=== PATIENT | male | born 1955 | race African-American/Black ===

== ENCOUNTER 2020-02-27 13:03 | Inpatient (IN) ==
[2020-02-27 15:08] LABS: Basophils % 1.2 % (0.0-0.8); Eosinophils % 1.2 % (0.00-10.9); Hematocrit 40.7 VOL% (42.0-52.0); Hemoglobin 13.4 GM/DL (14.0-18.0); Immature Granulocytes % 0.6 %; Immature Granulocytes Absolute 0.02 #; Lymphocytes # 0.8 10*3/uL (1.4-4.0); Lymphocytes % 25.6 % (21.2-54.2); Mean Corpuscular HGB Conc 32.9 GM/DL (32-36); Mean Corpuscular Volume 91.3 FL (87-102); Mean Platelet Volume 10.5 FL (9.6-12.0); Monocytes % 15.1 % (1.7-12.7); Neutrophils % 56.3 % (38.7-73.9); Platelet Count 124 T/CUMM (130-400); Red Blood Count 4.46 MC/CUMM (3.8-5.5); White Blood Count 3.2 T/CUMM (4-12)
[2020-02-27 15:16] LABS: PT Patient Result 10.9 SECS (9.8-11.9); Partial Thromboplastin Time 40.3 SECS (23.9-33.8)
[2020-02-27 15:36] LABS: Troponin I 0.077 NG/ML (0.00-0.045)
[2020-02-27 15:37] LABS: Eosinophils 1 % (0-10); Lymphocytes 26 % (20-55); Segmented Neutrophils 64 % (50-85); Total Cells Counted 100
[2020-02-27 15:38] LABS: Anisocytosis Slight; Burr Cells Slight; Elliptocytes Few; Osmolality,Calculated 283.4 MOS/KG (273-304); Platelet Estimate Adequate; Schistocytes Slight
[2020-02-27 16:05] LABS: Ferritin 524.9 ng/ml (26-388)
[2020-02-27] MEDS ORDERED: hydrALAZINE 20 MG/1 ML VIAL IV STA (17:08)
[2020-02-27] MEDS ORDERED: FUROSEMIDE 20 MG/2 ML VIAL IV STA (17:08)
[2020-02-27] MEDS ORDERED: ACETAMINOPHEN 325 MG TABLET PO PRN (17:34)
[2020-02-27] MEDS ORDERED: DEXTROSE 50% 25 GM/50 ML VIAL IV PRN (17:34)
[2020-02-27] MEDS ORDERED: ONDANSETRON 4 MG/2 ML VIAL IV PRN (17:34)
[2020-02-27] MEDS ORDERED: GLUCAGON 1 MG VIAL IM PRN (17:34)
[2020-02-27] MEDS ORDERED: hydrALAZINE 20 MG/1 ML VIAL IV PRN (17:41)
[2020-02-27] MEDS ORDERED: FUROSEMIDE 40 MG/4 ML VIAL ONE (17:42)
[2020-02-27] MEDS ORDERED: METOPROLOL SUCCINATE XL 25 MG TABLET PO SCH (18:00)
[2020-02-27] MEDS ORDERED: hydrALAZINE 25 MG TABLET PO SCH (21:00)
[2020-02-27] MEDS ORDERED: ISOSORBIDE DINITRATE 20 MG TABLET PO SCH (21:00)
[2020-02-27] MEDS: carvediloL 12.5 MG TABLET PO SCH (21:00)
[2020-02-27] MEDS: ENOXAPARIN 30 MG/0.3 ML SYRINGE SUBCUT SCH (21:01)
[2020-02-27] MEDS: cefTRIAXone 1,000 MG in SYRINGE 1 EACH IV SCH (21:01)
[2020-02-27] MEDS: AZITHROMYCIN INJ 500 MG in SODIUM CHLORIDE 0.9% 250 ML IV SCH (21:11)
[2020-02-28 05:35] LABS: Basophils % 0.5 % (0.0-0.8); Hematocrit 37.4 VOL% (42.0-52.0); Hemoglobin 12.3 GM/DL (14.0-18.0); Immature Granulocytes % 0.3 %; Immature Granulocytes Absolute 0.01 #; Lymphocytes # 0.6 10*3/uL (1.4-4.0); Lymphocytes % 14.9 % (21.2-54.2); Mean Corpuscular HGB Conc 32.9 GM/DL (32-36); Mean Corpuscular Volume 91.4 FL (87-102); Monocytes % 7.7 % (1.7-12.7); Neutrophils % 76.6 % (38.7-73.9); Platelet Count 148 T/CUMM (130-400); Red Blood Count 4.09 MC/CUMM (3.8-5.5); Red Cell Distribution Width 15.9 % (9.3-17.3); White Blood Count 3.9 T/CUMM (4-12)
[2020-02-28 05:54] LABS: Calcium 7.9 MG/DL (8.5-10.1); Osmolality,Calculated 286.3 MOS/KG (273-304)
[2020-02-28] MEDS: hydrALAZINE 25 MG TABLET PO SCH ×3 (09:39→20:52)
[2020-02-28] MEDS: carvediloL 12.5 MG TABLET PO SCH ×2 (09:39→18:14)
[2020-02-28] MEDS: ASPIRIN EC 81 MG TABLET PO SCH (09:39)
[2020-02-28] MEDS: ISOSORBIDE DINITRATE 20 MG TABLET PO SCH ×3 (09:39→20:52)
[2020-02-28] MEDS: FUROSEMIDE 40 MG/4 ML VIAL IV SCH ×2 (09:41→15:03)
[2020-02-28 09:43] LABS: Risk Ratio 2.61
[2020-02-28] MEDS: cefTRIAXone 1,000 MG in SYRINGE 1 EACH IV SCH (18:14)
[2020-02-28] MEDS: AZITHROMYCIN INJ 500 MG in SODIUM CHLORIDE 0.9% 250 ML IV SCH (18:15)
[2020-02-28] MEDS: ENOXAPARIN 30 MG/0.3 ML SYRINGE SUBCUT SCH (20:52)
[2020-02-28] MEDS: ATORVASTATIN 40 MG TABLET PO SCH (20:52)
[2020-02-29 06:25] LABS: Basophils % 1.2 % (0.0-0.8); Eosinophils % 1.6 % (0.00-10.9); Hematocrit 33.9 VOL% (42.0-52.0); Hemoglobin 10.9 GM/DL (14.0-18.0); Immature Granulocytes % 0.4 %; Immature Granulocytes Absolute 0.01 #; Lymphocytes # 0.9 10*3/uL (1.4-4.0); Lymphocytes % 38.2 % (21.2-54.2); Mean Corpuscular HGB Conc 32.2 GM/DL (32-36); Mean Corpuscular Volume 92.4 FL (87-102); Mean Platelet Volume 11.3 FL (9.6-12.0); Monocytes % 17.9 % (1.7-12.7); Neutrophils % 40.7 % (38.7-73.9); Platelet Count 116 T/CUMM (130-400); Red Blood Count 3.67 MC/CUMM (3.8-5.5); Red Cell Distribution Width 16.2 % (9.3-17.3); White Blood Count 2.5 T/CUMM (4-12)
[2020-02-29 06:48] LABS: Calcium 7.8 MG/DL (8.5-10.1); Eosinophils 3 % (0-10); Hypochromasia 1+; Lymphocytes 38 % (20-55); Microcytosis 1+; Osmolality,Calculated 282.5 MOS/KG (273-304); Platelet Estimate Decreased; Segmented Neutrophils 48 % (50-85); Total Cells Counted 100
[2020-02-29] MEDS: hydrALAZINE 25 MG TABLET PO SCH ×3 (08:49→20:54)
[2020-02-29] MEDS: carvediloL 12.5 MG TABLET PO SCH ×2 (08:49→17:54)
[2020-02-29] MEDS: ISOSORBIDE DINITRATE 20 MG TABLET PO SCH ×3 (08:50→20:54)
[2020-02-29 10:24] LABS: Glucose,Pleural Fluid 120 MG/DL; LDH,Body Fluid 70 U/L; Total Protein,Body Fluid < 1.0 G/DL
[2020-02-29 12:05] LABS: Lymphocytes,Pleural Fluid 90 %; Neutrophils,Pleural Fluid 8 %
[2020-02-29 12:11] LABS: RBC,Pleural Fluid 162 T/CUMM
[2020-02-29] MEDS: ASPIRIN EC 81 MG TABLET PO SCH (14:36)
[2020-02-29] MEDS: cefTRIAXone 1,000 MG in SYRINGE 1 EACH IV SCH (17:54)
[2020-02-29] MEDS: AZITHROMYCIN INJ 500 MG in SODIUM CHLORIDE 0.9% 250 ML IV SCH (17:57)
[2020-02-29] MEDS: ATORVASTATIN 40 MG TABLET PO SCH (20:54)
[2020-03-01 05:37] LABS: Basophils % 0.7 % (0.0-0.8); Eosinophils % 1.4 % (0.00-10.9); Hematocrit 34.5 VOL% (42.0-52.0); Hemoglobin 11.2 GM/DL (14.0-18.0); Immature Granulocytes % 0.3 %; Immature Granulocytes Absolute 0.01 #; Lymphocytes # 0.9 10*3/uL (1.4-4.0); Lymphocytes % 30.4 % (21.2-54.2); Mean Corpuscular HGB Conc 32.5 GM/DL (32-36); Mean Platelet Volume 10.7 FL (9.6-12.0); Monocytes % 15.7 % (1.7-12.7); Neutrophils % 51.5 % (38.7-73.9); Platelet Count 126 T/CUMM (130-400); Red Blood Count 3.75 MC/CUMM (3.8-5.5); Red Cell Distribution Width 15.9 % (9.3-17.3); White Blood Count 2.9 T/CUMM (4-12)
[2020-03-01 05:48] LABS: Calcium 8.2 MG/DL (8.5-10.1); Osmolality,Calculated 289.3 MOS/KG (273-304)
[2020-03-01 06:06] LABS: Eosinophils 1 % (0-10); Hypochromasia 1+; Lymphocytes 32 % (20-55); Microcytosis 1+; Segmented Neutrophils 56 % (50-85); Total Cells Counted 100
[2020-03-01 06:07] LABS: Ovalocytes Slight
[2020-03-01] MEDS ORDERED: SODIUM CHLORIDE 0.45% 1,000 ML IV SCH (07:30)
[2020-03-01] MEDS: hydrALAZINE 25 MG TABLET PO SCH ×3 (09:17→20:46)
[2020-03-01] MEDS: ISOSORBIDE DINITRATE 20 MG TABLET PO SCH ×3 (09:17→20:46)
[2020-03-01] MEDS: ASPIRIN EC 81 MG TABLET PO SCH (09:17)
[2020-03-01] MEDS: carvediloL 12.5 MG TABLET PO SCH ×2 (09:32→16:21)
[2020-03-01] MEDS: cefTRIAXone 1,000 MG in SYRINGE 1 EACH IV SCH (17:40)
[2020-03-01] MEDS: AZITHROMYCIN INJ 500 MG in SODIUM CHLORIDE 0.9% 250 ML IV SCH (17:45)
[2020-03-01] MEDS: ATORVASTATIN 40 MG TABLET PO SCH (20:46)
[2020-03-02 06:58] LABS: Basophils % 1.6 % (0.0-0.8); Eosinophils % 1.6 % (0.00-10.9); Hemoglobin 12.1 GM/DL (14.0-18.0); Immature Granulocytes % 0.4 %; Immature Granulocytes Absolute 0.01 #; Lymphocytes # 0.8 10*3/uL (1.4-4.0); Lymphocytes % 30.2 % (21.2-54.2); Mean Corpuscular HGB Conc 32.7 GM/DL (32-36); Mean Corpuscular Volume 90.7 FL (87-102); Mean Platelet Volume 11.2 FL (9.6-12.0); Monocytes % 12.9 % (1.7-12.7); Neutrophils % 53.3 % (38.7-73.9); Platelet Count 153 T/CUMM (130-400); Red Blood Count 4.08 MC/CUMM (3.8-5.5); Red Cell Distribution Width 15.9 % (9.3-17.3); White Blood Count 2.5 T/CUMM (4-12)
[2020-03-02 07:23] LABS: Calcium 8.1 MG/DL (8.5-10.1); Osmolality,Calculated 291.3 MOS/KG (273-304)
[2020-03-02 07:32] LABS: Eosinophils 2 % (0-10); Hypochromasia 1+; Lymphocytes 36 % (20-55); Microcytosis 1+; Platelet Estimate Adequate; Segmented Neutrophils 53 % (50-85); Total Cells Counted 100
[2020-03-02] MEDS: ASPIRIN EC 81 MG TABLET PO SCH (08:53)
[2020-03-02] MEDS: ISOSORBIDE DINITRATE 20 MG TABLET PO SCH ×3 (08:53→20:58)
[2020-03-02] MEDS: FUROSEMIDE 80 MG TABLET PO SCH (08:53)
[2020-03-02] MEDS: hydrALAZINE 25 MG TABLET PO SCH ×3 (08:53→20:58)
[2020-03-02] MEDS: carvediloL 25 MG TABLET PO SCH ×2 (08:53→16:22)
[2020-03-02] MEDS: cefTRIAXone 1,000 MG in SYRINGE 1 EACH IV SCH (17:34)
[2020-03-02] MEDS: AZITHROMYCIN INJ 500 MG in SODIUM CHLORIDE 0.9% 250 ML IV SCH (17:38)
[2020-03-02] MEDS: ATORVASTATIN 40 MG TABLET PO SCH (20:58)
[2020-03-03 05:20] LABS: Basophils % 1.6 % (0.0-0.8); Eosinophils # 0.1 10*3/uL (0.0-0.87); Hematocrit 33.9 VOL% (42.0-52.0); Hemoglobin 11.3 GM/DL (14.0-18.0); Immature Granulocytes % 0.4 %; Immature Granulocytes Absolute 0.01 #; Lymphocytes # 0.7 10*3/uL (1.4-4.0); Mean Corpuscular HGB Conc 33.3 GM/DL (32-36); Mean Corpuscular Volume 90.9 FL (87-102); Mean Platelet Volume 11.3 FL (9.6-12.0); Monocytes % 15.9 % (1.7-12.7); Neutrophils % 51.1 % (38.7-73.9); Platelet Count 120 T/CUMM (130-400); Red Blood Count 3.73 MC/CUMM (3.8-5.5); Red Cell Distribution Width 15.8 % (9.3-17.3); White Blood Count 2.5 T/CUMM (4-12)
[2020-03-03 05:43] LABS: Hypochromasia 1+; Lymphocytes 25 % (20-55); Microcytosis 1+; Platelet Estimate Normal; Segmented Neutrophils 56 % (50-85); Total Cells Counted 100
[2020-03-03 05:44] LABS: Calcium 7.8 MG/DL (8.5-10.1); Osmolality,Calculated 289.3 MOS/KG (273-304)
[2020-03-03 08:07] LABS: Alanine Aminotransferase 21 U/L (16-61); Albumin 1.7 G/DL (3.4-5.0); Alkaline Phosphatase 57 U/L (45-117); Aspartate Amino Transferase 34 U/L (0-37); Bilirubin,Direct < 0.100 MG/DL (0.0-0.20); Bilirubin,Indirect 0.3 MG/DL (0.0-1.0); Bilirubin,Total < 0.39 MG/DL (0.2-1.0); Total Protein 5.5 G/DL (6.4-8.3)
[2020-03-03] MEDS: hydrALAZINE 25 MG TABLET PO SCH ×3 (09:37→20:33)
[2020-03-03] MEDS: FUROSEMIDE 80 MG TABLET PO SCH (09:37)
[2020-03-03] MEDS: ASPIRIN EC 81 MG TABLET PO SCH (09:37)
[2020-03-03] MEDS: ISOSORBIDE DINITRATE 20 MG TABLET PO SCH ×3 (09:37→20:33)
[2020-03-03] MEDS: ASCORBIC ACID 500 MG TABLET PO SCH ×2 (09:37→20:33)
[2020-03-03] MEDS: carvediloL 25 MG TABLET PO SCH ×2 (09:38→17:17)
[2020-03-03] MEDS: DOBUTamine 500 MG/250 ML PREMIX IV SCH (09:40)
[2020-03-03] MEDS: cefTRIAXone 1,000 MG in SYRINGE 1 EACH IV SCH (18:27)
[2020-03-03] MEDS: ATORVASTATIN 40 MG TABLET PO SCH (20:33)
[2020-03-04 05:49] LABS: Basophils % 1.6 % (0.0-0.8); Eosinophils # 0.1 10*3/uL (0.0-0.87); Eosinophils % 3.3 % (0.00-10.9); Hematocrit 32.4 VOL% (42.0-52.0); Hemoglobin 10.8 GM/DL (14.0-18.0); Immature Granulocytes % 0.4 %; Immature Granulocytes Absolute 0.01 #; Lymphocytes # 0.8 10*3/uL (1.4-4.0); Lymphocytes % 31.4 % (21.2-54.2); Mean Corpuscular HGB Conc 33.3 GM/DL (32-36); Mean Corpuscular Volume 91.5 FL (87-102); Mean Platelet Volume 11.9 FL (9.6-12.0); Monocytes % 16.3 % (1.7-12.7); Platelet Count 149 T/CUMM (130-400); Red Blood Count 3.54 MC/CUMM (3.8-5.5); Red Cell Distribution Width 15.6 % (9.3-17.3); White Blood Count 2.5 T/CUMM (4-12)
[2020-03-04 06:12] LABS: Albumin 1.6 G/DL (3.4-5.0); Bilirubin,Total 0.4 MG/DL (0.2-1.0); Calcium 7.9 MG/DL (8.5-10.1); Osmolality,Calculated 289.1 MOS/KG (273-304); Total Protein 5.3 G/DL (6.4-8.3)
[2020-03-04 06:23] LABS: Band Neutrophils 2 % (0-10); Eosinophils 1 % (0-10); Lymphocytes 35 % (20-55); Segmented Neutrophils 45 % (50-85); Total Cells Counted 100
[2020-03-04 06:24] LABS: Macrocytosis Slight; Platelet Estimate Adequate
[2020-03-04 06:25] LABS: Anisocytosis 1+
[2020-03-04] MEDS: ASCORBIC ACID 500 MG TABLET PO SCH ×2 (08:42→20:20)
[2020-03-04] MEDS: ASPIRIN EC 81 MG TABLET PO SCH (08:43)
[2020-03-04] MEDS: hydrALAZINE 25 MG TABLET PO SCH ×3 (08:43→20:19)
[2020-03-04] MEDS: ISOSORBIDE DINITRATE 20 MG TABLET PO SCH ×3 (08:43→20:19)
[2020-03-04] MEDS: FUROSEMIDE 40 MG/4 ML VIAL IV SCH (08:43)
[2020-03-04] MEDS: DOBUTamine 500 MG/250 ML PREMIX IV SCH (08:43)
[2020-03-04] MEDS: carvediloL 25 MG TABLET PO SCH ×2 (08:43→17:01)
[2020-03-04] MEDS: POTASSIUM CHLORIDE 20 MEQ TABLET PO SCH (13:33)
[2020-03-04] MEDS: cefTRIAXone 1,000 MG in SYRINGE 1 EACH IV SCH (17:30)
[2020-03-04] MEDS: ATORVASTATIN 40 MG TABLET PO SCH (20:19)
[2020-03-05 05:58] LABS: Albumin 1.6 G/DL (3.4-5.0); Bilirubin,Total 0.5 MG/DL (0.2-1.0); Total Protein 5.4 G/DL (6.4-8.3)
[2020-03-05 08:14] LABS: Basophils # 0.1 10*3/uL (0.0-0.2); Basophils % 1.9 % (0.0-0.8); Eosinophils # 0.1 10*3/uL (0.0-0.87); Hematocrit 33.8 VOL% (42.0-52.0); Hemoglobin 11.1 GM/DL (14.0-18.0); Immature Granulocytes % 0.4 %; Immature Granulocytes Absolute 0.01 #; Lymphocytes # 0.9 10*3/uL (1.4-4.0); Lymphocytes % 31.8 % (21.2-54.2); Mean Corpuscular HGB Conc 32.8 GM/DL (32-36); Mean Corpuscular Volume 91.1 FL (87-102); Mean Platelet Volume 11.7 FL (9.6-12.0); Neutrophils % 44.9 % (38.7-73.9); Platelet Count 179 T/CUMM (130-400); Red Blood Count 3.71 MC/CUMM (3.8-5.5); Red Cell Distribution Width 15.9 % (9.3-17.3); White Blood Count 2.7 T/CUMM (4-12)
[2020-03-05] MEDS: carvediloL 25 MG TABLET PO SCH ×2 (08:36→17:33)
[2020-03-05] MEDS: hydrALAZINE 25 MG TABLET PO SCH ×3 (08:37→20:47)
[2020-03-05] MEDS: ISOSORBIDE DINITRATE 20 MG TABLET PO SCH ×3 (08:37→20:46)
[2020-03-05] MEDS: POTASSIUM CHLORIDE 20 MEQ TABLET PO SCH (08:37)
[2020-03-05] MEDS: ASPIRIN EC 81 MG TABLET PO SCH (08:37)
[2020-03-05] MEDS: ASCORBIC ACID 500 MG TABLET PO SCH ×2 (08:38→20:46)
[2020-03-05] MEDS: DOBUTamine 500 MG/250 ML PREMIX IV SCH (08:40)
[2020-03-05] MEDS: FUROSEMIDE 40 MG/4 ML VIAL IV SCH (08:42)
[2020-03-05 09:14] LABS: Band Neutrophils 1 % (0-10); Eosinophils 5 % (0-10); Lymphocytes 28 % (20-55); Platelet Estimate Normal; Segmented Neutrophils 48 % (50-85); Smudge Cells Few; Total Cells Counted 100
[2020-03-05 09:15] LABS: Anisocytosis 1+; Burr Cells Few; Ovalocytes Few; Poikilocytosis Slight
[2020-03-05] MEDS: cefTRIAXone 1,000 MG in SYRINGE 1 EACH IV SCH (17:33)
[2020-03-05] MEDS: ATORVASTATIN 40 MG TABLET PO SCH (20:47)
[2020-03-06 06:43] LABS: Alanine Aminotransferase 17 U/L (16-61); Albumin 1.6 G/DL (3.4-5.0); Alkaline Phosphatase 57 U/L (45-117); Aspartate Amino Transferase 31 U/L (0-37); Bilirubin,Total < 0.39 MG/DL (0.2-1.0); Blood Urea Nitrogen 18 MG/DL (7-18); Calcium 8.1 MG/DL (8.5-10.1); Estimated Glom Filtration Rate 50 ML/MIN; Glucose 67 MG/DL (74-106); Osmolality,Calculated 282.1 MOS/KG (273-304); Total Protein 5.4 G/DL (6.4-8.3)
[2020-03-06] MEDS: DOBUTamine 500 MG/250 ML PREMIX IV SCH (07:58)
[2020-03-06] MEDS: ISOSORBIDE DINITRATE 20 MG TABLET PO SCH ×3 (09:29→20:41)
[2020-03-06] MEDS: carvediloL 25 MG TABLET PO SCH ×2 (09:30→16:31)
[2020-03-06] MEDS: hydrALAZINE 25 MG TABLET PO SCH ×3 (09:30→20:41)
[2020-03-06] MEDS: ASPIRIN EC 81 MG TABLET PO SCH (09:30)
[2020-03-06] MEDS: ASCORBIC ACID 500 MG TABLET PO SCH ×2 (09:31→20:42)
[2020-03-06] MEDS: POTASSIUM CHLORIDE 20 MEQ TABLET PO SCH (09:31)
[2020-03-06] MEDS: FUROSEMIDE 40 MG/4 ML VIAL IV SCH (09:33)
[2020-03-06] MEDS: ATORVASTATIN 40 MG TABLET PO SCH (20:41)
[2020-03-07 06:40] LABS: Basophils % 1.4 % (0.0-0.8); Eosinophils # 0.1 10*3/uL (0.0-0.87); Eosinophils % 2.8 % (0.00-10.9); Hematocrit 35.7 VOL% (42.0-52.0); Hemoglobin 11.7 GM/DL (14.0-18.0); Immature Granulocytes % 0.7 %; Immature Granulocytes Absolute 0.02 #; Lymphocytes # 0.7 10*3/uL (1.4-4.0); Lymphocytes % 25.6 % (21.2-54.2); Mean Corpuscular HGB Conc 32.8 GM/DL (32-36); Mean Platelet Volume 11.2 FL (9.6-12.0); Monocytes % 15.3 % (1.7-12.7); Neutrophils % 54.2 % (38.7-73.9); Platelet Count 171 T/CUMM (130-400); Red Blood Count 3.88 MC/CUMM (3.8-5.5); Red Cell Distribution Width 15.8 % (9.3-17.3); White Blood Count 2.8 T/CUMM (4-12)
[2020-03-07 06:55] LABS: Calcium 8.1 MG/DL (8.5-10.1); Osmolality,Calculated 278.5 MOS/KG (273-304)
[2020-03-07 07:21] LABS: Band Neutrophils 2 % (0-10); Lymphocytes 21 % (20-55); Platelet Estimate Normal; Segmented Neutrophils 56 % (50-85); Total Cells Counted 100
[2020-03-07 07:22] LABS: Anisocytosis 1+; Poikilocytosis Slight
[2020-03-07 07:23] LABS: Macrocytosis 1+
[2020-03-07 08:36] VITALS: BP 158/90
[2020-03-07] MEDS ORDERED: MULTIVITAMIN (CENTRUM) TABLET PO SCH (09:00)
[2020-03-07] MEDS: ASPIRIN EC 81 MG TABLET PO SCH (09:25)
[2020-03-07] MEDS: hydrALAZINE 25 MG TABLET PO SCH (09:25)
[2020-03-07] MEDS: carvediloL 25 MG TABLET PO SCH (09:25)
[2020-03-07] MEDS: POTASSIUM CHLORIDE 20 MEQ TABLET PO SCH (09:25)
[2020-03-07] MEDS: ASCORBIC ACID 500 MG TABLET PO SCH (09:25)
[2020-03-07] MEDS: ISOSORBIDE DINITRATE 20 MG TABLET PO SCH (09:25)
[2020-03-07] MEDS: FUROSEMIDE 40 MG/4 ML VIAL IV SCH (09:26)
[2020-03-07] MEDS ORDERED: MAGNESIUM SULF RIDER 2 GM in PREMIX 1 EACH IV ONE (10:09)
== END 2020-03-07 13:15 | disposition home or self-care (01) | DRG 291 ==
LOC: N.EDINP 13:03 → N.ED 13:03 → N.TELEN 18:08
PROVIDERS: ADMIT Internal Medicine; ATTEND Internal Medicine Interventional Cardiology

== ENCOUNTER 2020-10-04 21:30 | Observation (INO) ==
[2020-10-04 22:05] LABS: Basophils % 1.4 % (0.0-0.8); Eosinophils % 1.8 % (0.00-10.9); Hematocrit 40.2 VOL% (42.0-52.0); Hemoglobin 12.6 GM/DL (14.0-18.0); Immature Granulocytes % 0.5 %; Immature Granulocytes Absolute 0.01 #; Lymphocytes # 0.6 10*3/uL (1.4-4.0); Lymphocytes % 26.6 % (21.2-54.2); Mean Corpuscular HGB Conc 31.3 GM/DL (32-36); Mean Corpuscular Volume 89.1 FL (87-102); Mean Platelet Volume 11.4 FL (9.6-12.0); Monocytes % 8.7 % (1.7-12.7); Platelet Count 108 T/CUMM (130-400); Red Blood Count 4.51 MC/CUMM (3.8-5.5); Red Cell Distribution Width 15.8 % (9.3-17.3); White Blood Count 2.2 T/CUMM (4-12)
[2020-10-04 22:23] LABS: Bilirubin,Total 0.4 MG/DL (0.2-1.0); Calcium 7.6 MG/DL (8.5-10.1); Osmolality,Calculated 284.3 MOS/KG (273-304); Potassium 4.3 MMOL/L (3.5-5.1); Total Protein 6.2 G/DL (6.4-8.2)
[2020-10-04 22:28] LABS: ABG Base Excess -3.5 MMOL/L (-2.5-2.5); ABG HCO3 20.2 MMOL/L (20-26); ABG Oxygen Saturation 97.3 % (95-100); ABG PCO2 32.5 MM HG (35-48); ABG PH 7.411 (7.35-7.45); ABG PO2 97.2 MM HG (80-95); ABG TCO2 21.2 MMOL/L (23-27); Allen Test Positive
[2020-10-04] MEDS ORDERED: FUROSEMIDE 100 MG/10 ML VIAL IV STA (22:57)
[2020-10-05] MEDS ORDERED: DEXTROSE 50% 25 GM/50 ML VIAL IV PRN ×2 (00:44)
[2020-10-05] MEDS ORDERED: ZALEPLON 5 MG CAPSULE PO PRN (00:44)
[2020-10-05] MEDS ORDERED: NICOTINE 21 MG/24 HR PATCH TRANSDERM PRN (00:44)
[2020-10-05] MEDS ORDERED: diphenhydrAMINE CAP 25 MG CAPSULE PO PRN (00:44)
[2020-10-05] MEDS ORDERED: guaiFENesin/DM ER 600-30 MG TABLET PO PRN (00:44)
[2020-10-05] MEDS ORDERED: ONDANSETRON 4 MG/2 ML VIAL IV PRN (00:44)
[2020-10-05] MEDS ORDERED: MORPHINE 4 MG/1 ML VIAL IV PRN (00:44)
[2020-10-05] MEDS ORDERED: DOCUSATE SODIUM 100 MG CAPSULE PO PRN (00:44)
[2020-10-05] MEDS ORDERED: GLUCAGON 1 MG VIAL IM PRN ×2 (00:44)
[2020-10-05] MEDS ORDERED: hydrALAZINE 20 MG/1 ML VIAL IV PRN (00:44)
[2020-10-05] MEDS ORDERED: LABETALOL 20 MG/4 ML SYRINGE IV ONE (03:23)
[2020-10-05 05:36] LABS: Basophils % 1.1 % (0.0-0.8); Eosinophils % 1.1 % (0.00-10.9); Hemoglobin 13.2 GM/DL (14.0-18.0); Immature Granulocytes % 0.4 %; Immature Granulocytes Absolute 0.01 #; Lymphocytes # 0.5 10*3/uL (1.4-4.0); Lymphocytes % 18.6 % (21.2-54.2); Mean Corpuscular HGB Conc 31.4 GM/DL (32-36); Mean Corpuscular Volume 88.4 FL (87-102); Mean Platelet Volume 12.5 FL (9.6-12.0); Monocytes % 6.9 % (1.7-12.7); Neutrophils % 71.9 % (38.7-73.9); Platelet Count 100 T/CUMM (130-400); Red Blood Count 4.75 MC/CUMM (3.8-5.5); Red Cell Distribution Width 15.4 % (9.3-17.3); White Blood Count 2.7 T/CUMM (4-12)
[2020-10-05 05:47] LABS: Hypochromasia 1+; Platelet Estimate Decreased
[2020-10-05 05:55] LABS: Albumin 2.1 G/DL (3.4-5.0); Bilirubin,Total 0.5 MG/DL (0.2-1.0); Calcium 8.2 MG/DL (8.5-10.1); Osmolality,Calculated 279.7 MOS/KG (273-304); Potassium 4.3 MMOL/L (3.5-5.1); Total Protein 6.7 G/DL (6.4-8.2)
[2020-10-05] MEDS: ATORVASTATIN 40 MG TABLET PO SCH (08:27)
[2020-10-05] MEDS: ASPIRIN EC 81 MG TABLET PO SCH (08:27)
[2020-10-05] MEDS: PANTOPRAZOLE 40 MG TABLET PO SCH (08:27)
[2020-10-05] MEDS: FUROSEMIDE 40 MG/4 ML VIAL IV SCH ×2 (08:29→16:18)
[2020-10-05] MEDS: HEPARIN 5,000 UNIT/1 ML VIAL SUBCUT SCH ×2 (08:32→21:50)
[2020-10-05] MEDS: INSULIN LISPRO 100 UNIT/ML SUBCUT SCH ×4 (08:33→21:48)
[2020-10-05] MEDS ORDERED: carvediloL 25 MG TABLET PO SCH (09:00)
[2020-10-05 11:25] LABS: INR 1.2; PT Patient Result 13.1 SECS (10.5-12.0)
[2020-10-05] MEDS: ISOSORBIDE MONONITRATE 30 MG TABLET PO SCH (15:05)
[2020-10-05] MEDS: carvediloL 25 MG TABLET PO SCH (16:21)
[2020-10-06 04:54] LABS: Basophils % 1.5 % (0.0-0.8); Hematocrit 36.4 VOL% (42.0-52.0); Hemoglobin 11.9 GM/DL (14.0-18.0); Immature Granulocytes % 0.5 %; Immature Granulocytes Absolute 0.01 #; Lymphocytes # 0.6 10*3/uL (1.4-4.0); Lymphocytes % 28.3 % (21.2-54.2); Mean Corpuscular HGB Conc 32.7 GM/DL (32-36); Mean Corpuscular Volume 86.1 FL (87-102); Mean Platelet Volume 11.8 FL (9.6-12.0); Monocytes % 7.8 % (1.7-12.7); Neutrophils % 59.9 % (38.7-73.9); Platelet Count 104 T/CUMM (130-400); Red Blood Count 4.23 MC/CUMM (3.8-5.5); Red Cell Distribution Width 15.6 % (9.3-17.3); White Blood Count 2.1 T/CUMM (4-12)
[2020-10-06 05:07] LABS: Osmolality,Calculated 279.5 MOS/KG (273-304); Potassium 3.8 MMOL/L (3.5-5.1)
[2020-10-06 05:55] LABS: Anisocytosis 1+; Platelet Estimate Adequate; Poikilocytosis Slight
[2020-10-06 05:56] LABS: Burr Cells Few
[2020-10-06] MEDS: ISOSORBIDE MONONITRATE 30 MG TABLET PO SCH (08:20)
[2020-10-06] MEDS: PANTOPRAZOLE 40 MG TABLET PO SCH (08:20)
[2020-10-06] MEDS: HEPARIN 5,000 UNIT/1 ML VIAL SUBCUT SCH (08:20)
[2020-10-06] MEDS: carvediloL 25 MG TABLET PO SCH (08:20)
[2020-10-06] MEDS: FUROSEMIDE 40 MG/4 ML VIAL IV SCH (08:20)
[2020-10-06] MEDS: ASPIRIN EC 81 MG TABLET PO SCH (08:20)
[2020-10-06] MEDS: ATORVASTATIN 40 MG TABLET PO SCH (08:20)
[2020-10-06] MEDS: INSULIN LISPRO 100 UNIT/ML SUBCUT SCH ×3 (08:21→16:04)
[2020-10-06 11:49] VITALS: BP 127/67
[2020-10-06] MEDS ORDERED: FUROSEMIDE 40 MG TABLET PO SCH (16:00)
== END 2020-10-06 16:00 | disposition home or self-care (01) ==
LOC: N.ED 21:30 → N.EDINP 21:30 → SUATTDRO 10-05 00:44 → N.EDINP 10-05 02:34 → N.4E 10-05 03:00
PROVIDERS: ADMIT Internal Medicine; ATTEND Hospitalist

== ENCOUNTER 2020-11-09 06:52 | Observation (INO) ==
[2020-11-09] MEDS ORDERED: FUROSEMIDE 100 MG/10 ML VIAL IV STA (07:14)
[2020-11-09 07:27] LABS: Basophils # 0.1 10*3/uL (0.0-0.2); Basophils % 1.3 % (0.0-0.8); Hematocrit 38.5 VOL% (42.0-52.0); Hemoglobin 11.8 GM/DL (14.0-18.0); Immature Granulocytes % 0.8 %; Immature Granulocytes Absolute 0.03 #; Lymphocytes # 0.7 10*3/uL (1.4-4.0); Lymphocytes % 18.3 % (21.2-54.2); Mean Corpuscular HGB Conc 30.6 GM/DL (32-36); Mean Corpuscular Volume 87.3 FL (87-102); Mean Platelet Volume 11.2 FL (9.6-12.0); Monocytes % 4.9 % (1.7-12.7); Neutrophils % 74.7 % (38.7-73.9); Platelet Count 134 T/CUMM (130-400); Red Blood Count 4.41 MC/CUMM (3.8-5.5); Red Cell Distribution Width 15.9 % (9.3-17.3); White Blood Count 3.9 T/CUMM (4-12)
[2020-11-09 07:46] LABS: INR 1.3; PT Patient Result 14.6 SECS (10.5-12.0); Partial Thromboplastin Time 36.3 SECS (23.9-33.8)
[2020-11-09 07:47] LABS: Albumin 2.3 G/DL (3.4-5.0); Bilirubin,Total 1.8 MG/DL (0.20-1.00); Calcium 8.6 MG/DL (8.5-10.1); Osmolality,Calculated 300.8 MOS/KG (273-304); Total Protein 7.5 G/DL (6.4-8.2)
[2020-11-09] MEDS ORDERED: GLUCAGON 1 MG VIAL IM PRN (08:25)
[2020-11-09] MEDS ORDERED: DEXTROSE 50% 25 GM/50 ML VIAL IV PRN (08:25)
[2020-11-09] MEDS ORDERED: BISACODYL 5 MG TABLET PO PRN (08:25)
[2020-11-09] MEDS ORDERED: ONDANSETRON 4 MG/2 ML VIAL IV PRN (08:25)
[2020-11-09] MEDS: ENOXAPARIN 30 MG/0.3 ML SYRINGE SUBCUT SCH (09:15)
[2020-11-09] MEDS ORDERED: SODIUM CHLORIDE 0.9% 1,000 ML IV SCH (09:30)
[2020-11-09] MEDS: carvediloL 6.25 MG TABLET PO SCH (16:07)
[2020-11-09] MEDS: ACETAMINOPHEN 325 MG TABLET PO PRN ×2 (18:33→21:43)
[2020-11-10 05:00] LABS: Basophils % 0.5 % (0.0-0.8); Hematocrit 36.9 VOL% (42.0-52.0); Hemoglobin 11.6 GM/DL (14.0-18.0); Immature Granulocytes % 0.5 %; Immature Granulocytes Absolute 0.02 #; Lymphocytes # 0.4 10*3/uL (1.4-4.0); Lymphocytes % 9.7 % (21.2-54.2); Mean Corpuscular HGB Conc 31.4 GM/DL (32-36); Mean Corpuscular Volume 86.4 FL (87-102); Mean Platelet Volume 11.7 FL (9.6-12.0); Monocytes % 3.7 % (1.7-12.7); Neutrophils % 85.6 % (38.7-73.9); Platelet Count 132 T/CUMM (130-400); Red Blood Count 4.27 MC/CUMM (3.8-5.5); Red Cell Distribution Width 15.8 % (9.3-17.3)
[2020-11-10 05:27] LABS: Potassium 4.3 MMOL/L (3.5-5.1)
[2020-11-10] MEDS: SODIUM CHLORIDE 0.9% 1,000 ML IV SCH (07:58)
[2020-11-10] MEDS: ASPIRIN EC 81 MG TABLET PO SCH (08:01)
[2020-11-10] MEDS: carvediloL 6.25 MG TABLET PO SCH ×2 (08:01→16:09)
[2020-11-10] MEDS: ISOSORBIDE MONONITRATE 30 MG TABLET PO SCH (08:01)
[2020-11-10] MEDS: ACETAMINOPHEN 325 MG TABLET PO PRN (08:02)
[2020-11-10] MEDS: ENOXAPARIN 30 MG/0.3 ML SYRINGE SUBCUT SCH (08:02)
[2020-11-10] MEDS: MENTHOL/ZINC OXIDE OINT 71 GM JAR TOP SCH ×2 (17:42→20:47)
[2020-11-11] MEDS: ACETAMINOPHEN 325 MG TABLET PO PRN (00:18)
[2020-11-11] MEDS: SODIUM CHLORIDE 0.9% 1,000 ML IV SCH (03:24)
[2020-11-11 07:03] LABS: Basophils % 0.3 % (0.0-0.8); Eosinophils % 0.7 % (0.00-10.9); Hematocrit 33.7 VOL% (42.0-52.0); Hemoglobin 10.8 GM/DL (14.0-18.0); Immature Granulocytes % 0.3 %; Immature Granulocytes Absolute 0.01 #; Lymphocytes # 0.4 10*3/uL (1.4-4.0); Lymphocytes % 14.7 % (21.2-54.2); Mean Corpuscular Volume 86.4 FL (87-102); Mean Platelet Volume 11.8 FL (9.6-12.0); Monocytes % 3.8 % (1.7-12.7); Neutrophils % 80.2 % (38.7-73.9); Platelet Count 131 T/CUMM (130-400); Red Cell Distribution Width 15.9 % (9.3-17.3); White Blood Count 2.9 T/CUMM (4-12)
[2020-11-11 07:24] LABS: Calcium 7.6 MG/DL (8.5-10.1); Osmolality,Calculated 296.1 MOS/KG (273-304); Potassium 3.9 MMOL/L (3.5-5.1)
[2020-11-11 07:44] VITALS: BP 150/87
[2020-11-11] MEDS ORDERED: FUROSEMIDE 40 MG TABLET PO SCH (08:08)
[2020-11-11] MEDS: ISOSORBIDE MONONITRATE 30 MG TABLET PO SCH (08:29)
[2020-11-11] MEDS: ENOXAPARIN 30 MG/0.3 ML SYRINGE SUBCUT SCH (08:29)
[2020-11-11] MEDS: carvediloL 6.25 MG TABLET PO SCH (08:29)
[2020-11-11] MEDS: ASPIRIN EC 81 MG TABLET PO SCH (08:29)
[2020-11-11] MEDS: MENTHOL/ZINC OXIDE OINT 71 GM JAR TOP SCH (08:29)
== END 2020-11-11 11:18 | disposition home health service (06) ==
LOC: N.ED 06:52 → N.EDINP 06:52 → SUATTDRO 08:25 → N.5E 09:30
PROVIDERS: ADMIT Internal Medicine; ATTEND Emergency Medicine

== ENCOUNTER 2020-11-20 20:21 | Inpatient (IN) ==
[2020-11-20] MEDS ORDERED: DEXTROSE 50% 25 GM/50 ML SYRINGE IV ONE (23:09)
[2020-11-20] MEDS ORDERED: DEXTROSE 50% 25 GM/50 ML VIAL IV STA (23:10)
[2020-11-21 00:59] LABS: Amorphous Crystals,Urine Few /HPF (Few); Bacteria,Urine Few /HPF (Few); Bilirubin,Urine Negative (Negative); Blood, Urine Large mg/dL (Negative); Glucose,Urine (UA) Negative (Negative); Hyaline Casts,Urine 1 /LPF (0-3); Ketones,Urine Negative (Negative); Nitrite,Urine Negative (Negative); Protein,Urine >=500 MG/DL; Urine Appearance CLEAR (Clear); Urine Specific Gravity 1.017 (1.001-1.035); Urine Urobilinogen < 2.0 EU/DL (0.2-1.0)
[2020-11-21 01:01] LABS: Urine Color Yellow (Yellow)
[2020-11-21 01:03] LABS: Barbiturates Screen,Urine Negative (Negative); Benzodiazepines Screen,Urine Negative (Negative); Cannabinoid Screen,Urine Negative (Negative); Opiate Screen,Urine Negative (Negative); Phencyclidine Screen,Urine Negative (Negative)
[2020-11-21 01:09] LABS: Basophils % 0.2 % (0.0-0.8); Hematocrit 45.6 VOL% (42.0-52.0); Hemoglobin 13.9 GM/DL (14.0-18.0); Immature Granulocytes % 0.4 %; Immature Granulocytes Absolute 0.02 #; Lymphocytes # 0.4 10*3/uL (1.4-4.0); Lymphocytes % 8.3 % (21.2-54.2); Mean Corpuscular HGB Conc 30.5 GM/DL (32-36); Mean Corpuscular Volume 89.4 FL (87-102); Mean Platelet Volume 12.6 FL (9.6-12.0); Neutrophils % 86.1 % (38.7-73.9); Platelet Count 128 T/CUMM (130-400); Red Cell Distribution Width 19.9 % (9.3-17.3)
[2020-11-21 01:11] LABS: Albumin 1.9 G/DL (3.4-5.0); Bilirubin,Total 1.2 MG/DL (0.20-1.00); Calcium 8.1 MG/DL (8.5-10.1); Osmolality,Calculated 304.3 MOS/KG (273-304); Total Protein 7.2 G/DL (6.4-8.2)
[2020-11-21 01:16] LABS: Potassium 6.5 MMOL/L (3.5-5.1)
[2020-11-21] MEDS ORDERED: SODIUM CHLORIDE 0.9% 1,000 ML IV STA (01:22)
[2020-11-21 01:24] LABS: CKMB % 0.6 %
[2020-11-21 01:25] LABS: INR 1.3; PT Patient Result 14.3 SECS (10.5-12.0); Partial Thromboplastin Time 35.6 SECS (23.9-33.8)
[2020-11-21] MEDS ORDERED: DEXTROSE 50% 25 GM/50 ML VIAL IV STA (01:25)
[2020-11-21] MEDS ORDERED: SODIUM POLYSTYRENE SULFATE 15 GM/60 ML BOTTLE PO STA (01:50)
[2020-11-21] MEDS ORDERED: cefTRIAXone 1,000 MG in SODIUM CHLORIDE 0.9% 100 ML IV STA (01:50)
[2020-11-21] MEDS: DEXTROSE 5% NACL 0.9% 1,000 ML IV SCH ×2 (02:33→08:31)
[2020-11-21] MEDS ORDERED: SODIUM POLYSTYRENE SULFATE 15 GM/60 ML BOTTLE RECTAL STA (05:33)
[2020-11-21] MEDS ORDERED: ONDANSETRON 4 MG/2 ML VIAL IV PRN (05:52)
[2020-11-21] MEDS ORDERED: DOCUSATE SODIUM 100 MG CAPSULE PO PRN (05:52)
[2020-11-21] MEDS ORDERED: ACETAMINOPHEN 325 MG TABLET PO PRN (05:52)
[2020-11-21] MEDS ORDERED: AZITHROMYCIN INJ 500 MG in SODIUM CHLORIDE 0.9% 250 ML IV SCH (06:30)
[2020-11-21] MEDS: ENOXAPARIN 60 MG/0.6 ML SYRINGE SUBCUT SCH (06:31)
[2020-11-21] MEDS ORDERED: ALBUTEROL/IPRATROPIUM 3 ML NEB RESP TX PRN (06:36)
[2020-11-21] MEDS ORDERED: PIPERACILLIN/TAZOBACTAM 3,375 MG in SODIUM CHLORIDE 0.9% 100 ML IV SCH (07:00)
[2020-11-21] MEDS ORDERED: methylPREDNISolone SOD SUC 125 MG/2 ML VIAL IV ONE (08:16)
[2020-11-21 08:17] LABS: ABG Base Excess -7.2 MMOL/L (-2.5-2.5); ABG HCO3 18.6 MMOL/L (20-26); ABG PCO2 23.1 MM HG (35-48); ABG PH 7.431 (7.35-7.45); ABG TCO2 13.5 MMOL/L (23-27)
[2020-11-21 08:53] LABS: Calcium 7.8 MG/DL (8.5-10.1); Osmolality,Calculated 315.7 MOS/KG (273-304); Potassium 5.3 MMOL/L (3.5-5.1); Risk Ratio 5.93
[2020-11-21] MEDS: ASPIRIN 300 MG SUPP RECTAL SCH (09:19)
[2020-11-21] MEDS: ISOSORBIDE MONONITRATE 30 MG TABLET PO SCH (09:19)
[2020-11-21] MEDS: DEXTROSE 5% LACTATED RINGERS 1,000 ML IV SCH ×3 (09:19→23:40)
[2020-11-21] MEDS: carvediloL 6.25 MG TABLET PO SCH ×2 (09:19→20:52)
[2020-11-21] MEDS: ALBUTEROL/IPRATROPIUM 3 ML NEB RESP TX SCH ×3 (10:57→19:48)
[2020-11-21] MEDS: hydrALAZINE 20 MG/1 ML VIAL IV PRN (11:23)
[2020-11-21 12:06] LABS: Calcium 7.9 MG/DL (8.5-10.1); Osmolality,Calculated 312.1 MOS/KG (273-304); Potassium 5.5 MMOL/L (3.5-5.1)
[2020-11-21] MEDS ORDERED: methylPREDNISolone SOD SUC 40 MG/1 ML VIAL IV SCH (14:30)
[2020-11-21] MEDS ORDERED: FUROSEMIDE 40 MG/4 ML VIAL IV ONE (17:04)
[2020-11-21] MEDS: methylPREDNISolone SOD SUC 40 MG/1 ML VIAL IV SCH (19:25)
[2020-11-21] MEDS: PIPERACILLIN/TAZOBACTAM 3,375 MG in SODIUM CHLORIDE 0.9% 100 ML IV SCH (19:30)
[2020-11-21] MEDS: LACTATED RINGERS 1,000 ML IV SCH (22:30)
[2020-11-22] MEDS: ALBUTEROL/IPRATROPIUM 3 ML NEB RESP TX SCH ×7 (00:14→23:40)
[2020-11-22 01:46] LABS: Calcium 8.1 MG/DL (8.5-10.1); Osmolality,Calculated 325.6 MOS/KG (273-304); Potassium 5.6 MMOL/L (3.5-5.1)
[2020-11-22] MEDS ORDERED: cefTRIAXone 1,000 MG in SODIUM CHLORIDE 0.9% 100 ML IV SCH (02:00)
[2020-11-22] MEDS: methylPREDNISolone SOD SUC 40 MG/1 ML VIAL IV SCH ×2 (02:28→08:53)
[2020-11-22 04:19] LABS: Hematocrit 38.6 VOL% (42.0-52.0); Hemoglobin 11.8 GM/DL (14.0-18.0); Immature Granulocytes % 0.4 %; Immature Granulocytes Absolute 0.02 #; Lymphocytes # 0.3 10*3/uL (1.4-4.0); Lymphocytes % 6.4 % (21.2-54.2); Mean Corpuscular HGB Conc 30.6 GM/DL (32-36); Mean Corpuscular Volume 89.4 FL (87-102); Mean Platelet Volume 12.6 FL (9.6-12.0); Monocytes % 1.2 % (1.7-12.7); Platelet Count 114 T/CUMM (130-400); Red Blood Count 4.32 MC/CUMM (3.8-5.5); Red Cell Distribution Width 19.6 % (9.3-17.3); White Blood Count 4.9 T/CUMM (4-12)
[2020-11-22 04:34] LABS: Albumin 1.5 G/DL (3.4-5.0); Bilirubin,Total 1.1 MG/DL (0.20-1.00); Calcium 7.9 MG/DL (8.5-10.1); Ferritin 355.9 ng/ml (26-388); Osmolality,Calculated 328.4 MOS/KG (273-304); Potassium 5.2 MMOL/L (3.5-5.1); Total Protein 6.4 G/DL (6.4-8.2)
[2020-11-22] MEDS: INSULIN LISPRO 100 UNIT/ML SUBCUT SCH ×6 (04:35→23:53)
[2020-11-22 04:39] LABS: ABG Base Excess -6.3 MMOL/L (-2.5-2.5); ABG HCO3 15.9 MMOL/L (20-26); ABG Oxygen Saturation 99.7 % (95-100); ABG PCO2 23.6 MM HG (35-48); ABG PH 7.447 (7.35-7.45); ABG PO2 494.7 MM HG (80-95); ABG TCO2 16.6 MMOL/L (23-27)
[2020-11-22 04:44] LABS: Burr Cells Slight; Hypochromasia Slight; Lymphocytes 3 % (20-55); Ovalocytes Slight; Platelet Estimate Decreased; Segmented Neutrophils 96 % (50-85); Total Cells Counted 100
[2020-11-22 04:57] LABS: Osmolality,Calculated 324.7 MOS/KG (273-304); Potassium 5.2 MMOL/L (3.5-5.1)
[2020-11-22] MEDS: ENOXAPARIN 60 MG/0.6 ML SYRINGE SUBCUT SCH (07:35)
[2020-11-22] MEDS: ASPIRIN 300 MG SUPP RECTAL SCH (08:32)
[2020-11-22] MEDS: ISOSORBIDE MONONITRATE 30 MG TABLET PO SCH (08:32)
[2020-11-22] MEDS: carvediloL 6.25 MG TABLET PO SCH ×2 (08:45→23:55)
[2020-11-22] MEDS: PIPERACILLIN/TAZOBACTAM 3,375 MG in SODIUM CHLORIDE 0.9% 100 ML IV SCH ×2 (08:45→23:31)
[2020-11-22] MEDS: DOBUTamine 500 MG/250 ML PREMIX IV PRN (08:50)
[2020-11-22] MEDS: ASPIRIN CHEW 81 MG TABLET PO SCH (09:12)
[2020-11-22] MEDS: predniSONE 20 MG TABLET PO SCH (10:56)
[2020-11-22] MEDS: ENOXAPARIN 30 MG/0.3 ML SYRINGE SUBCUT SCH (13:09)
[2020-11-22 16:46] LABS: Calcium 7.9 MG/DL (8.5-10.1); Potassium 5.1 MMOL/L (3.5-5.1)
[2020-11-22] MEDS: INSULIN GLARGINE 100 UNIT/ML SUBCUT SCH (18:51)
[2020-11-22] MEDS: DEXTROSE 50% 25 GM/50 ML VIAL IV PRN ×2 (20:27→20:52)
[2020-11-22] MEDS: DEXTROSE 5% LACTATED RINGERS 1,000 ML IV SCH (23:45)
[2020-11-23] MEDS: ALBUTEROL/IPRATROPIUM 3 ML NEB RESP TX SCH ×5 (03:00→19:33)
[2020-11-23] MEDS: INSULIN LISPRO 100 UNIT/ML SUBCUT SCH ×4 (07:02→19:08)
[2020-11-23 07:15] LABS: Hematocrit 36.8 VOL% (42.0-52.0); Hemoglobin 11.6 GM/DL (14.0-18.0); Immature Granulocytes Absolute 0.08 #; Lymphocytes # 0.3 10*3/uL (1.4-4.0); Lymphocytes % 3.2 % (21.2-54.2); Mean Corpuscular HGB Conc 31.5 GM/DL (32-36); Mean Platelet Volume 13.2 FL (9.6-12.0); Monocytes % 1.9 % (1.7-12.7); Neutrophils % 93.9 % (38.7-73.9); Platelet Count 102 T/CUMM (130-400); Red Blood Count 4.18 MC/CUMM (3.8-5.5); Red Cell Distribution Width 19.5 % (9.3-17.3); White Blood Count 7.7 T/CUMM (4-12)
[2020-11-23 08:12] LABS: Hypochromasia 1+; Osmolality,Calculated 325.9 MOS/KG (273-304); Platelet Estimate Decreased; Potassium 4.7 MMOL/L (3.5-5.1); Segmented Neutrophils 96 % (50-85); Total Cells Counted 100
[2020-11-23 08:13] LABS: Burr Cells Slight; Ovalocytes Slight
[2020-11-23] MEDS: carvediloL 6.25 MG TABLET PO SCH (08:41)
[2020-11-23] MEDS: ASPIRIN CHEW 81 MG TABLET PO SCH (08:41)
[2020-11-23] MEDS: ISOSORBIDE MONONITRATE 30 MG TABLET PO SCH (08:41)
[2020-11-23] MEDS: predniSONE 20 MG TABLET PO SCH (08:42)
[2020-11-23] MEDS ORDERED: DEXTROSE 5% 1,000 ML IV SCH (09:00)
[2020-11-23] MEDS: PIPERACILLIN/TAZOBACTAM 3,375 MG in SODIUM CHLORIDE 0.9% 100 ML IV SCH (09:13)
[2020-11-23] MEDS: INSULIN GLARGINE 100 UNIT/ML SUBCUT SCH (09:14)
[2020-11-23] MEDS: LACTATED RINGERS 1,000 ML IV SCH (10:43)
[2020-11-23] MEDS: DOBUTamine 500 MG/250 ML PREMIX IV PRN (10:45)
[2020-11-23] MEDS: DEXTROSE 5% 1,000 ML IV SCH (11:08)
[2020-11-23] MEDS: ENOXAPARIN 30 MG/0.3 ML SYRINGE SUBCUT SCH (15:21)
[2020-11-24] MEDS: ALBUTEROL/IPRATROPIUM 3 ML NEB RESP TX SCH ×3 (00:20→20:11)
[2020-11-24] MEDS: INSULIN LISPRO 100 UNIT/ML SUBCUT SCH ×6 (01:44→21:01)
[2020-11-24] MEDS: carvediloL 6.25 MG TABLET PO SCH ×3 (05:31→21:03)
[2020-11-24] MEDS: PIPERACILLIN/TAZOBACTAM 3,375 MG in SODIUM CHLORIDE 0.9% 100 ML IV SCH ×3 (05:32→20:57)
[2020-11-24 06:10] LABS: Hematocrit 37.6 VOL% (42.0-52.0); Hemoglobin 11.4 GM/DL (14.0-18.0); Immature Granulocytes % 0.5 %; Immature Granulocytes Absolute 0.03 #; Lymphocytes # 0.3 10*3/uL (1.4-4.0); Lymphocytes % 4.4 % (21.2-54.2); Mean Corpuscular HGB Conc 30.3 GM/DL (32-36); Mean Platelet Volume 12.2 FL (9.6-12.0); Monocytes % 2.7 % (1.7-12.7); NRBC # 0.02 10*3/uL; Neutrophils % 92.4 % (38.7-73.9); Platelet Count 81 T/CUMM (130-400); Red Blood Count 4.18 MC/CUMM (3.8-5.5); Red Cell Distribution Width 19.8 % (9.3-17.3); White Blood Count 6.7 T/CUMM (4-12)
[2020-11-24 06:31] LABS: Anisocytosis 3+; Band Neutrophils 3 % (0-10); Lymphocytes 2 % (20-55); Macrocytosis 1+; Platelet Estimate Decreased; Segmented Neutrophils 94 % (50-85); Total Cells Counted 100
[2020-11-24 06:32] LABS: Burr Cells 1+; Poikilocytosis Slight
[2020-11-24 06:35] LABS: Calcium 8.2 MG/DL (8.5-10.1); Osmolality,Calculated 329.4 MOS/KG (273-304); Potassium 5.1 MMOL/L (3.5-5.1)
[2020-11-24] MEDS: DEXTROSE 5% 1,000 ML IV SCH ×2 (07:36→16:40)
[2020-11-24] MEDS: INSULIN GLARGINE 100 UNIT/ML SUBCUT SCH (11:00)
[2020-11-24] MEDS: ASPIRIN CHEW 81 MG TABLET PO SCH (13:33)
[2020-11-24] MEDS: ISOSORBIDE MONONITRATE 30 MG TABLET PO SCH (13:33)
[2020-11-24] MEDS: RIVAROXABAN 20 MG TABLET PO SCH (13:35)
[2020-11-24] MEDS: DOBUTamine 500 MG/250 ML PREMIX IV PRN (22:39)
[2020-11-25] LABS: ABG Base Excess -8.5 MMOL/L (-2.5-2.5); ABG Oxygen Saturation 99.5 % (95-100); ABG PCO2 22.1 MM HG (35-48); ABG TCO2 14.7 MMOL/L (23-27)
[2020-11-25 00:02] LABS: ABG PO2 513.5 MM HG (80-95)
[2020-11-25] MEDS: ALBUTEROL/IPRATROPIUM 3 ML NEB RESP TX SCH ×7 (00:06→23:34)
[2020-11-25] MEDS: INSULIN LISPRO 100 UNIT/ML SUBCUT SCH ×7 (00:30→23:25)
[2020-11-25 06:19] LABS: Hematocrit 36.7 VOL% (42.0-52.0); Hemoglobin 11.1 GM/DL (14.0-18.0); Immature Granulocytes % 0.9 %; Immature Granulocytes Absolute 0.04 #; Lymphocytes # 0.4 10*3/uL (1.4-4.0); Lymphocytes % 9.4 % (21.2-54.2); Mean Corpuscular HGB Conc 30.2 GM/DL (32-36); Monocytes % 3.7 % (1.7-12.7); NRBC # 0.04 10*3/uL; Platelet Count 92 T/CUMM (130-400); Red Blood Count 4.08 MC/CUMM (3.8-5.5); Red Cell Distribution Width 20.1 % (9.3-17.3); White Blood Count 4.3 T/CUMM (4-12)
[2020-11-25 06:35] LABS: Calcium 8.3 MG/DL (8.5-10.1); Potassium 4.6 MMOL/L (3.5-5.1)
[2020-11-25] MEDS: DOBUTamine 500 MG/250 ML PREMIX IV SCH ×2 (09:17→12:45)
[2020-11-25] MEDS: carvediloL 6.25 MG TABLET PO SCH ×2 (09:17→22:46)
[2020-11-25] MEDS: ASPIRIN CHEW 81 MG TABLET PO SCH (09:17)
[2020-11-25] MEDS: ISOSORBIDE MONONITRATE 30 MG TABLET PO SCH (09:17)
[2020-11-25] MEDS: predniSONE 10 MG TABLET PO SCH (09:18)
[2020-11-25] MEDS: INSULIN GLARGINE 100 UNIT/ML SUBCUT SCH (09:18)
[2020-11-25] MEDS: RIVAROXABAN 15 MG TABLET PO SCH (09:18)
[2020-11-25] MEDS: PIPERACILLIN/TAZOBACTAM 3,375 MG in SODIUM CHLORIDE 0.9% 100 ML IV SCH (09:33)
[2020-11-25 09:56] LABS: Hypochromasia 1+; Platelet Estimate Adequate
[2020-11-25] MEDS: RIVAROXABAN 20 MG TABLET PO SCH (10:53)
[2020-11-25] MEDS: DEXTROSE 50% 25 GM/50 ML VIAL IV PRN (11:56)
[2020-11-25] MEDS: DEXTROSE 5% 1,000 ML IV SCH ×2 (12:14→17:19)
[2020-11-25] MEDS: hydrALAZINE 20 MG/1 ML VIAL IV PRN (16:56)
[2020-11-26] MEDS: ALBUTEROL/IPRATROPIUM 3 ML NEB RESP TX SCH ×6 (03:40→23:40)
[2020-11-26] MEDS: INSULIN LISPRO 100 UNIT/ML SUBCUT SCH ×5 (04:24→20:51)
[2020-11-26 07:40] LABS: Calcium 8.2 MG/DL (8.5-10.1); Osmolality,Calculated 318.3 MOS/KG (273-304); Potassium 4.3 MMOL/L (3.5-5.1)
[2020-11-26 07:44] LABS: Basophils % 0.3 % (0.0-0.8); Hematocrit 38.4 VOL% (42.0-52.0); Hemoglobin 11.2 GM/DL (14.0-18.0); Immature Granulocytes % 1.6 %; Immature Granulocytes Absolute 0.06 #; Lymphocytes # 0.4 10*3/uL (1.4-4.0); Lymphocytes % 9.2 % (21.2-54.2); Mean Corpuscular HGB Conc 29.2 GM/DL (32-36); Mean Corpuscular Volume 93.9 FL (87-102); Monocytes % 4.5 % (1.7-12.7); NRBC # 0.05 10*3/uL; Neutrophils % 84.4 % (38.7-73.9); Platelet Count 73 T/CUMM (130-400); Red Blood Count 4.09 MC/CUMM (3.8-5.5); Red Cell Distribution Width 20.5 % (9.3-17.3); White Blood Count 3.8 T/CUMM (4-12)
[2020-11-26] MEDS: DEXTROSE 50% 25 GM/50 ML VIAL IV PRN (08:00)
[2020-11-26] MEDS: predniSONE 10 MG TABLET PO SCH (08:13)
[2020-11-26] MEDS: ASPIRIN CHEW 81 MG TABLET PO SCH (08:14)
[2020-11-26] MEDS: DEXTROSE 5% 1,000 ML IV SCH ×2 (08:55→21:02)
[2020-11-26] MEDS: carvediloL 6.25 MG TABLET PO SCH ×2 (10:04→22:48)
[2020-11-26] MEDS: INSULIN GLARGINE 100 UNIT/ML SUBCUT SCH (10:04)
[2020-11-26] MEDS: ISOSORBIDE MONONITRATE 30 MG TABLET PO SCH (10:04)
[2020-11-26] MEDS: DOBUTamine 500 MG/250 ML PREMIX IV SCH ×2 (10:04→17:08)
[2020-11-26 11:06] LABS: Hypochromasia 2+; Platelet Estimate Adequate
[2020-11-27] MEDS: INSULIN LISPRO 100 UNIT/ML SUBCUT SCH ×6 (00:30→21:05)
[2020-11-27] MEDS: ALBUTEROL/IPRATROPIUM 3 ML NEB RESP TX SCH ×6 (03:02→23:45)
[2020-11-27 06:50] LABS: Hematocrit 36.7 VOL% (42.0-52.0); Hemoglobin 11.1 GM/DL (14.0-18.0); Immature Granulocytes % 0.9 %; Immature Granulocytes Absolute 0.04 #; Lymphocytes # 0.3 10*3/uL (1.4-4.0); Lymphocytes % 5.4 % (21.2-54.2); Mean Corpuscular HGB Conc 30.2 GM/DL (32-36); Mean Corpuscular Volume 92.4 FL (87-102); Mean Platelet Volume 12.9 FL (9.6-12.0); Monocytes % 3.9 % (1.7-12.7); NRBC # 0.05 10*3/uL; Neutrophils % 89.8 % (38.7-73.9); Red Blood Count 3.97 MC/CUMM (3.8-5.5); Red Cell Distribution Width 20.8 % (9.3-17.3); White Blood Count 4.7 T/CUMM (4-12)
[2020-11-27 06:51] LABS: Platelet Count 76 T/CUMM (130-400)
[2020-11-27 06:59] LABS: Osmolality,Calculated 332.9 MOS/KG (273-304); Potassium 4.9 MMOL/L (3.5-5.1)
[2020-11-27 07:16] LABS: Hypochromasia Slight; Microcytosis Slight; Ovalocytes Slight; Platelet Estimate Decreased
[2020-11-27] MEDS: INSULIN GLARGINE 100 UNIT/ML SUBCUT SCH (09:56)
[2020-11-27] MEDS: DEXTROSE 5% 1,000 ML IV SCH ×2 (10:16→21:46)
[2020-11-27] MEDS: carvediloL 6.25 MG TABLET PO SCH ×2 (10:41→21:45)
[2020-11-27] MEDS: DAPAGLIFLOZIN 5 MG TABLET PO SCH (10:41)
[2020-11-27] MEDS: ISOSORBIDE MONONITRATE 30 MG TABLET PO SCH (10:41)
[2020-11-27] MEDS: predniSONE 10 MG TABLET PO SCH (10:41)
[2020-11-27] MEDS: DOBUTamine 500 MG/250 ML PREMIX IV SCH (10:43)
[2020-11-27] MEDS: FAT EMULSION 20% 250 ML IV SCH (16:02)
[2020-11-27] MEDS ORDERED: AMINO ACIDS/DEXT/LYTES 4.25-5% 2,000 ML IV SCH (17:00)
[2020-11-27] MEDS ORDERED: DEXTROSE 10% 1,000 ML IV PRN (17:00)
[2020-11-28] MEDS: INSULIN LISPRO 100 UNIT/ML SUBCUT SCH ×5 (03:49→17:37)
[2020-11-28 05:26] LABS: Basophils % 0.2 % (0.0-0.8); Hematocrit 39.2 VOL% (42.0-52.0); Hemoglobin 11.8 GM/DL (14.0-18.0); Immature Granulocytes % 0.9 %; Immature Granulocytes Absolute 0.05 #; Lymphocytes # 0.4 10*3/uL (1.4-4.0); Lymphocytes % 6.5 % (21.2-54.2); Mean Corpuscular HGB Conc 30.1 GM/DL (32-36); Mean Corpuscular Volume 93.1 FL (87-102); Monocytes % 4.8 % (1.7-12.7); NRBC # 0.14 10*3/uL; Neutrophils % 87.6 % (38.7-73.9); Platelet Count 82 T/CUMM (130-400); Red Blood Count 4.21 MC/CUMM (3.8-5.5); Red Cell Distribution Width 21.6 % (9.3-17.3); White Blood Count 5.6 T/CUMM (4-12)
[2020-11-28 05:49] LABS: Platelet Estimate Decreased
[2020-11-28 05:50] LABS: Hypochromasia Slight
[2020-11-28 05:52] LABS: Calcium 8.2 MG/DL (8.5-10.1); Calcium 8.3 MG/DL (8.5-10.1); Osmolality,Calculated 322.7 MOS/KG (273-304); Osmolality,Calculated 323.7 MOS/KG (273-304); Potassium 5.4 MMOL/L (3.5-5.1); Potassium 5.5 MMOL/L (3.5-5.1)
[2020-11-28] MEDS: ALBUTEROL/IPRATROPIUM 3 ML NEB RESP TX SCH ×6 (06:58→23:58)
[2020-11-28] MEDS: hydrALAZINE 20 MG/1 ML VIAL IV PRN (07:22)
[2020-11-28] MEDS ORDERED: ENOXAPARIN 60 MG/0.6 ML SYRINGE SUBCUT SCH (09:00)
[2020-11-28] MEDS ORDERED: MAGNESIUM SULF RIDER 4 GM/100 ML PREMIX IV ONE (09:35)
[2020-11-28] MEDS ORDERED: FUROSEMIDE 100 MG/10 ML VIAL IV ONE (09:43)
[2020-11-28] MEDS ORDERED: FUROSEMIDE 40 MG/4 ML VIAL IV ONE (10:07)
[2020-11-28] MEDS: ISOSORBIDE MONONITRATE 30 MG TABLET PO SCH (11:20)
[2020-11-28] MEDS: INSULIN GLARGINE 100 UNIT/ML SUBCUT SCH (11:20)
[2020-11-28] MEDS: DAPAGLIFLOZIN 5 MG TABLET PO SCH (11:20)
[2020-11-28] MEDS: predniSONE 20 MG TABLET PO SCH (11:20)
[2020-11-28] MEDS: carvediloL 6.25 MG TABLET PO SCH (11:21)
[2020-11-28] MEDS: DEXTROSE 5% 1,000 ML IV SCH (11:22)
[2020-11-28] MEDS: METOPROLOL TARTRATE 5 MG/5 ML VIAL IV SCH ×3 (11:43→17:13)
[2020-11-28] MEDS ORDERED: cloNIDine 0.1 MG/24 HR PATCH TRANSDERM SCH (14:00)
[2020-11-28] MEDS: AMINO ACIDS IV SCH (17:13)
[2020-11-28] MEDS: DEXTROSE IV SCH (17:13)
[2020-11-28] MEDS: MULTIVITAMIN IV SCH (17:13)
[2020-11-28] MEDS: SODIUM ACETATE IV SCH (17:13)
[2020-11-28] MEDS: carvediloL 12.5 MG TABLET PO SCH (17:37)
[2020-11-28] MEDS: DEXTROSE 50% 25 GM/50 ML VIAL IV PRN ×3 (19:41→23:03)
[2020-11-29] MEDS: GLUCAGON 1 MG VIAL IM PRN (00:08)
[2020-11-29] MEDS: INSULIN LISPRO 100 UNIT/ML SUBCUT SCH ×7 (00:13→19:48)
[2020-11-29] MEDS: ALBUTEROL/IPRATROPIUM 3 ML NEB RESP TX SCH ×6 (01:38→23:47)
[2020-11-29] MEDS: DEXTROSE 5% 1,000 ML IV SCH ×2 (01:47→15:05)
[2020-11-29] MEDS: METOPROLOL TARTRATE 5 MG/5 ML VIAL IV SCH ×2 (05:36→13:52)
[2020-11-29 06:38] LABS: Hematocrit 35.9 VOL% (42.0-52.0); Hemoglobin 11.2 GM/DL (14.0-18.0); Immature Granulocytes % 0.9 %; Immature Granulocytes Absolute 0.04 #; Lymphocytes # 0.4 10*3/uL (1.4-4.0); Lymphocytes % 8.6 % (21.2-54.2); Mean Corpuscular HGB Conc 31.2 GM/DL (32-36); Mean Corpuscular Volume 89.8 FL (87-102); Monocytes % 4.3 % (1.7-12.7); NRBC # 0.17 10*3/uL; Neutrophils % 86.2 % (38.7-73.9); White Blood Count 4.7 T/CUMM (4-12)
[2020-11-29 06:39] LABS: Platelet Count 72 T/CUMM (130-400)
[2020-11-29 06:58] LABS: Albumin 1.7 G/DL (3.4-5.0); Bilirubin,Total 2.1 MG/DL (0.20-1.00); Osmolality,Calculated 320.1 MOS/KG (273-304); Potassium 4.9 MMOL/L (3.5-5.1); Total Protein 6.2 G/DL (6.4-8.2)
[2020-11-29 07:05] LABS: Hypochromasia Slight; Macrocytosis Slight; Platelet Estimate Decreased
[2020-11-29] MEDS ORDERED: METOPROLOL TARTRATE 5 MG/5 ML VIAL IV PRN (10:12)
[2020-11-29] MEDS: carvediloL 12.5 MG TABLET PO SCH (10:35)
[2020-11-29] MEDS: INSULIN GLARGINE 100 UNIT/ML SUBCUT SCH (10:36)
[2020-11-29] MEDS: ISOSORBIDE MONONITRATE 30 MG TABLET PO SCH (10:36)
[2020-11-29] MEDS: DAPAGLIFLOZIN 5 MG TABLET PO SCH (10:36)
[2020-11-29] MEDS: predniSONE 20 MG TABLET PO SCH (10:37)
[2020-11-29] MEDS: SODIUM BICARBONATE 650 MG TABLET PO SCH ×3 (10:37→20:08)
[2020-11-29] MEDS: HYDROCORTISONE 100 MG VIAL IV SCH ×3 (10:42→20:28)
[2020-11-29] MEDS: AMINO ACIDS IV SCH (11:36)
[2020-11-29] MEDS: MULTIVITAMIN IV SCH (11:36)
[2020-11-29] MEDS: DEXTROSE IV SCH (11:36)
[2020-11-29] MEDS: SODIUM ACETATE IV SCH (11:36)
[2020-11-29] MEDS ORDERED: FUROSEMIDE 40 MG/4 ML VIAL IV ONE (13:15)
[2020-11-29] MEDS: FAT EMULSION 20% 250 ML IV SCH (14:00)
[2020-11-29] MEDS: ENOXAPARIN 40 MG/0.4 ML SYRINGE SUBCUT SCH (18:26)
[2020-11-29] MEDS: hydrALAZINE 20 MG/1 ML VIAL IV PRN (20:34)
[2020-11-30] MEDS: ALBUTEROL/IPRATROPIUM 3 ML NEB RESP TX SCH ×6 (02:55→23:36)
[2020-11-30] MEDS: HYDROCORTISONE 100 MG VIAL IV SCH ×4 (03:40→21:48)
[2020-11-30] MEDS: DEXTROSE 5% 1,000 ML IV SCH ×2 (03:58→18:03)
[2020-11-30] MEDS: INSULIN LISPRO 100 UNIT/ML SUBCUT SCH ×6 (04:38→19:56)
[2020-11-30] MEDS: DEXTROSE IV SCH ×2 (05:00→21:56)
[2020-11-30] MEDS: SODIUM ACETATE IV SCH ×2 (05:00→21:56)
[2020-11-30] MEDS: MULTIVITAMIN IV SCH ×2 (05:00→21:56)
[2020-11-30] MEDS: AMINO ACIDS IV SCH ×2 (05:00→21:56)
[2020-11-30 05:49] LABS: Hematocrit 35.9 VOL% (42.0-52.0); Immature Granulocytes % 1.3 %; Immature Granulocytes Absolute 0.09 #; Lymphocytes # 0.2 10*3/uL (1.4-4.0); Lymphocytes % 3.2 % (21.2-54.2); Mean Corpuscular HGB Conc 30.6 GM/DL (32-36); Mean Corpuscular Volume 89.3 FL (87-102); Monocytes % 2.8 % (1.7-12.7); NRBC # 0.12 10*3/uL; Neutrophils % 92.7 % (38.7-73.9); Red Blood Count 4.02 MC/CUMM (3.8-5.5); Red Cell Distribution Width 21.2 % (9.3-17.3)
[2020-11-30 05:57] LABS: Platelet Count 81 T/CUMM (130-400); White Blood Count 7.2 T/CUMM (4-12)
[2020-11-30 06:10] LABS: Hypochromasia 1+; Lymphocytes 1 % (20-55); Nucleated Red Blood Cells 2 (0-5); Segmented Neutrophils 97 % (50-85); Total Cells Counted 100
[2020-11-30 06:11] LABS: Acanthocytes Few; Anisocytosis 1+; Microcytosis 1+; Ovalocytes Slight; Polychromasia Slight
[2020-11-30 06:12] LABS: Burr Cells Slight; Platelet Estimate Decreased
[2020-11-30] MEDS ORDERED: DOBUTamine 500 MG/250 ML PREMIX IV SCH (08:30)
[2020-11-30] MEDS ORDERED: ASPIRIN 300 MG SUPP RECTAL SCH (09:00)
[2020-11-30] MEDS: RIVAROXABAN 15 MG TABLET PO SCH (10:57)
[2020-11-30] MEDS: predniSONE 20 MG TABLET PO SCH (10:58)
[2020-11-30] MEDS: INSULIN GLARGINE 100 UNIT/ML SUBCUT SCH (10:58)
[2020-11-30] MEDS: SODIUM BICARBONATE 650 MG TABLET PO SCH ×3 (11:01→21:48)
[2020-11-30] MEDS: ENOXAPARIN 40 MG/0.4 ML SYRINGE SUBCUT SCH (18:04)
[2020-12-01] MEDS: KETOROLAC 15 MG/1 ML VIAL IV PRN (01:02)
[2020-12-01] MEDS: INSULIN LISPRO 100 UNIT/ML SUBCUT SCH ×7 (01:53→23:55)
[2020-12-01] MEDS: ALBUTEROL/IPRATROPIUM 3 ML NEB RESP TX SCH ×6 (03:05→23:08)
[2020-12-01] MEDS: HYDROCORTISONE 100 MG VIAL IV SCH ×4 (03:45→21:54)
[2020-12-01 05:53] LABS: Albumin 1.2 G/DL (3.4-5.0); Bilirubin,Total 1.5 MG/DL (0.20-1.00); Calcium 7.8 MG/DL (8.5-10.1); Osmolality,Calculated 305.5 MOS/KG (273-304); Potassium 4.4 MMOL/L (3.5-5.1); Total Protein 5.9 G/DL (6.4-8.2)
[2020-12-01 05:56] LABS: Basophils % 0.1 % (0.0-0.8); Hematocrit 33.9 VOL% (42.0-52.0); Hemoglobin 11.1 GM/DL (14.0-18.0); Immature Granulocytes % 0.7 %; Immature Granulocytes Absolute 0.05 #; Lymphocytes # 0.2 10*3/uL (1.4-4.0); Lymphocytes % 2.5 % (21.2-54.2); Mean Corpuscular HGB Conc 32.7 GM/DL (32-36); Mean Corpuscular Volume 87.6 FL (87-102); Monocytes % 3.6 % (1.7-12.7); NRBC # 0.08 10*3/uL; Neutrophils % 93.1 % (38.7-73.9); Platelet Count 63 T/CUMM (130-400); Red Blood Count 3.87 MC/CUMM (3.8-5.5); Red Cell Distribution Width 21.2 % (9.3-17.3); White Blood Count 7.2 T/CUMM (4-12)
[2020-12-01 06:49] LABS: Lymphocytes 3 % (20-55); Nucleated Red Blood Cells 1 (0-5); Segmented Neutrophils 92 % (50-85); Total Cells Counted 100
[2020-12-01 06:50] LABS: Anisocytosis 1+; Hypochromasia 1+; Microcytosis 1+; Ovalocytes Few; Platelet Estimate Decreased; Target Cells Few
[2020-12-01] MEDS ORDERED: DOBUTamine 500 MG/250 ML PREMIX IV SCH (07:21)
[2020-12-01] MEDS: DEXTROSE 5% 1,000 ML IV SCH ×2 (07:35→21:02)
[2020-12-01] MEDS: INSULIN GLARGINE 100 UNIT/ML SUBCUT SCH (09:47)
[2020-12-01] MEDS: predniSONE 20 MG TABLET PO SCH (10:34)
[2020-12-01] MEDS: SODIUM BICARBONATE 650 MG TABLET PO SCH ×3 (10:35→23:17)
[2020-12-01] MEDS: FAT EMULSION 20% 250 ML IV SCH (14:44)
[2020-12-01] MEDS: SODIUM ACETATE IV SCH (16:06)
[2020-12-01] MEDS: DEXTROSE IV SCH (16:06)
[2020-12-01] MEDS: MULTIVITAMIN IV SCH (16:06)
[2020-12-01] MEDS: AMINO ACIDS IV SCH (16:06)
[2020-12-01] MEDS: ENOXAPARIN 40 MG/0.4 ML SYRINGE SUBCUT SCH (17:33)
[2020-12-02] MEDS: ALBUTEROL/IPRATROPIUM 3 ML NEB RESP TX SCH ×5 (03:02→20:55)
[2020-12-02] MEDS: HYDROCORTISONE 100 MG VIAL IV SCH ×4 (03:13→20:41)
[2020-12-02] MEDS: INSULIN LISPRO 100 UNIT/ML SUBCUT SCH ×5 (04:40→20:26)
[2020-12-02 07:08] LABS: Hematocrit 31.9 VOL% (42.0-52.0); Hemoglobin 10.2 GM/DL (14.0-18.0); Immature Granulocytes % 0.7 %; Immature Granulocytes Absolute 0.06 #; Lymphocytes % 0.5 % (21.2-54.2); Mean Corpuscular Volume 87.6 FL (87-102); Monocytes % 1.4 % (1.7-12.7); NRBC # 0.05 10*3/uL; Neutrophils % 97.4 % (38.7-73.9); Platelet Count 62 T/CUMM (130-400); Red Blood Count 3.64 MC/CUMM (3.8-5.5); Red Cell Distribution Width 21.1 % (9.3-17.3); White Blood Count 8.6 T/CUMM (4-12)
[2020-12-02 07:39] LABS: Band Neutrophils 1 % (0-10); Nucleated Red Blood Cells 2 (0-5); Platelet Estimate Decreased; Segmented Neutrophils 98 % (50-85); Total Cells Counted 100
[2020-12-02 08:00] LABS: Albumin 1.6 G/DL (3.4-5.0); Bilirubin,Total 1.3 MG/DL (0.20-1.00); Osmolality,Calculated 300.5 MOS/KG (273-304); Potassium 3.6 MMOL/L (3.5-5.1)
[2020-12-02] MEDS: INSULIN GLARGINE 100 UNIT/ML SUBCUT SCH (09:08)
[2020-12-02] MEDS: SODIUM ACETATE IV SCH (10:15)
[2020-12-02] MEDS: AMINO ACIDS IV SCH (10:15)
[2020-12-02] MEDS: DEXTROSE IV SCH (10:15)
[2020-12-02] MEDS: MULTIVITAMIN IV SCH (10:15)
[2020-12-02] MEDS: DEXTROSE 5% 1,000 ML IV SCH (10:16)
[2020-12-02] MEDS: SODIUM BICARBONATE 650 MG TABLET PO SCH ×3 (10:35→20:27)
[2020-12-02] MEDS: DEXTROSE 50% 25 GM/50 ML VIAL IV PRN ×2 (11:33→19:27)
[2020-12-02] MEDS: GLUCAGON 1 MG VIAL IM PRN (12:20)
[2020-12-03] MEDS: INSULIN LISPRO 100 UNIT/ML SUBCUT SCH ×6 (00:06→21:11)
[2020-12-03] MEDS: HYDROCORTISONE 100 MG VIAL IV SCH ×4 (02:58→21:28)
[2020-12-03] MEDS: MULTIVITAMIN IV SCH ×2 (03:00→03:25)
[2020-12-03] MEDS: SODIUM ACETATE IV SCH ×2 (03:00→03:25)
[2020-12-03] MEDS: AMINO ACIDS IV SCH ×2 (03:00→03:25)
[2020-12-03] MEDS: DEXTROSE IV SCH ×2 (03:00→03:25)
[2020-12-03] MEDS: ALBUTEROL/IPRATROPIUM 3 ML NEB RESP TX SCH ×5 (03:39→20:22)
[2020-12-03 06:07] LABS: Basophils % 0.1 % (0.0-0.8); Hematocrit 32.2 VOL% (42.0-52.0); Hemoglobin 10.4 GM/DL (14.0-18.0); Immature Granulocytes % 0.9 %; Immature Granulocytes Absolute 0.08 #; Lymphocytes # 0.1 10*3/uL (1.4-4.0); Lymphocytes % 0.6 % (21.2-54.2); Mean Corpuscular HGB Conc 32.3 GM/DL (32-36); Monocytes % 1.9 % (1.7-12.7); NRBC # 0.03 10*3/uL; Neutrophils % 96.5 % (38.7-73.9); Red Cell Distribution Width 21.6 % (9.3-17.3)
[2020-12-03 06:41] LABS: Platelet Count 43 T/CUMM (130-400)
[2020-12-03 06:43] LABS: Albumin 1.5 G/DL (3.4-5.0); Band Neutrophils 1 % (0-10); Bilirubin,Total 1.7 MG/DL (0.20-1.00); Calcium 8.1 MG/DL (8.5-10.1); Osmolality,Calculated 311.2 MOS/KG (273-304); Platelet Estimate Decreased; Potassium 3.9 MMOL/L (3.5-5.1); Segmented Neutrophils 98 % (50-85); Total Cells Counted 100; Total Protein 5.8 G/DL (6.4-8.2)
[2020-12-03 06:44] LABS: Hypochromasia Slight
[2020-12-03] MEDS: INSULIN GLARGINE 100 UNIT/ML SUBCUT SCH (08:49)
[2020-12-03] MEDS: SODIUM BICARBONATE 650 MG TABLET PO SCH ×3 (08:50→21:11)
[2020-12-03] MEDS: KETOROLAC 15 MG/1 ML VIAL IV PRN (09:27)
[2020-12-03] MEDS: FAT EMULSION 20% 250 ML IV SCH (14:40)
[2020-12-04] MEDS: INSULIN LISPRO 100 UNIT/ML SUBCUT SCH ×7 (00:27→23:54)
[2020-12-04] MEDS: SODIUM ACETATE IV SCH (03:06)
[2020-12-04] MEDS: AMINO ACIDS IV SCH (03:06)
[2020-12-04] MEDS: MULTIVITAMIN IV SCH (03:06)
[2020-12-04] MEDS: DEXTROSE IV SCH (03:06)
[2020-12-04] MEDS: HYDROCORTISONE 100 MG VIAL IV SCH ×4 (03:07→20:16)
[2020-12-04] MEDS: ALBUTEROL/IPRATROPIUM 3 ML NEB RESP TX SCH ×8 (04:20→23:15)
[2020-12-04 05:54] LABS: Calcium 7.9 MG/DL (8.5-10.1); Osmolality,Calculated 316.5 MOS/KG (273-304); Potassium 4.1 MMOL/L (3.5-5.1)
[2020-12-04 06:01] LABS: Albumin 1.5 G/DL (3.4-5.0); Bilirubin,Total 1.3 MG/DL (0.20-1.00); Osmolality,Calculated 308.7 MOS/KG (273-304); Total Protein 5.9 G/DL (6.4-8.2)
[2020-12-04 06:48] LABS: Basophils % 0.1 % (0.0-0.8); Hematocrit 33.8 VOL% (42.0-52.0); Hemoglobin 10.9 GM/DL (14.0-18.0); Immature Granulocytes % 0.6 %; Immature Granulocytes Absolute 0.04 #; Lymphocytes % 0.6 % (21.2-54.2); Mean Corpuscular HGB Conc 32.2 GM/DL (32-36); Mean Corpuscular Volume 86.9 FL (87-102); Monocytes % 2.2 % (1.7-12.7); NRBC # 0.04 10*3/uL; Neutrophils % 96.5 % (38.7-73.9); Red Blood Count 3.89 MC/CUMM (3.8-5.5); Red Cell Distribution Width 22.5 % (9.3-17.3); White Blood Count 7.2 T/CUMM (4-12)
[2020-12-04 06:53] LABS: Platelet Count 31 T/CUMM (130-400)
[2020-12-04 07:03] LABS: Hypochromasia Slight; Nucleated Red Blood Cells 1 (0-5); Platelet Estimate Decreased; Segmented Neutrophils 98 % (50-85); Total Cells Counted 100
[2020-12-04] MEDS ORDERED: ENOXAPARIN 40 MG/0.4 ML SYRINGE SUBCUT SCH (09:00)
[2020-12-04] MEDS: SODIUM BICARBONATE 650 MG TABLET PO SCH ×3 (09:41→20:17)
[2020-12-04] MEDS: INSULIN GLARGINE 100 UNIT/ML SUBCUT SCH (09:45)
[2020-12-04] MEDS: DEXTROSE 50% 25 GM/50 ML VIAL IV PRN (23:53)
[2020-12-05] MEDS: ALBUTEROL/IPRATROPIUM 3 ML NEB RESP TX SCH (03:05)
[2020-12-05] MEDS ORDERED: EPINEPHrine 1 MG/10 ML SYRINGE IV ONE ×5 (03:36→03:50)
[2020-12-05] MEDS ORDERED: SODIUM BICARBONATE 50 MEQ/50 ML SYRINGE IV ONE ×2 (03:37→03:42)
[2020-12-05] MEDS ORDERED: CALCIUM CHLORIDE 1,000 MG/10 ML SYRINGE IV ONE (03:40)
[2020-12-05] MEDS ORDERED: EPINEPHrine 1 MG/10 ML SYRINGE ONE ×2 (03:49→03:50)
[2020-12-05] MEDS ORDERED: EPINEPHrine 1 MG/ML VIAL ONE (03:56)
[2020-12-05 07:13] VITALS: BP 129/42
[2020-12-05] MEDS ORDERED: cloNIDine 0.1 MG/24 HR PATCH TRANSDERM SCH (09:00)
== END 2020-12-05 04:22 | disposition expired | DRG 64 ==
LOC: EDUNIT# → EDBD → N.ED 20:21 → N.EDINP 11-21 03:47 → SUATTDRO 11-21 03:47 → N.EDINP 11-21 05:47 → N.TELEN 11-21 06:24 → N.ICU 11-21 08:47 → N.TELEN 11-22 15:20 → N.CVR 11-29 08:38 → N.TELES 11-29 23:33
PROVIDERS: ADMIT Internal Medicine; ATTEND Internal Medicine